=== PATIENT | female | born 1955 | race Caucasian/White ===

== ENCOUNTER 2017-05-04 12:48 | Emergency (ER) | payer OTHER ==
[~2017-05-04] VITALS: Ht 154.9 cm; Wt 63.3 kg
[~2017-05-04 12:48] MED LIST: CLON-481 PO; DUONI NEB; PRED20 PO; VENTAER INH
[2017-05-04 13:00] VITALS: BP 173/91; PULSE 112; RESP 20; TEMP 98.7
[2017-05-04] MEDS ORDERED: ALBU0.63 NEB (13:17)
[2017-05-04] MEDS ORDERED: RESP: ALBUTEROL 2.5 MG/IPRATROPIUM 0.5 MG NEB (SCH) NEB ONE (13:30)
[2017-05-04] MEDS ORDERED: methylPREDNISolone SOD SUCC 125 MG/2 ML VIAL IM ONE (13:30)
--- NOTE | 2017-05-04 13:32 | PD ---
HPI Chief Complaint: Cold / Flu Symptoms Time Seen by Provider: 13:23 Travel History International Travel<30 days: No Contact w/Intl Traveler<30days: No Traveled to known affect area: No History of Present Illness HPI 61-year-old female with history of asthma presents to the emergency room for evaluation of nonproductive cough for the past week. Patient states she had other cold and flu symptoms such as sore throat, ear pain, and nasal congestion one month ago but those symptoms went away 1 week ago. Patient called a tele- doc who prescribed her azithromycin, prednisone, and Levaquin which she finished. States she felt moderately better after taking the prednisone and Levaquin but a few days after stopping, the symptoms returned. States she has periods where she feels a lot of congestion in her chest she has difficulty bringing up, especially at night. She used to smoke but no longer smokes. No history of fever, chills, nausea, or vomiting. PFSH Past Medical History Anxiety: Yes Cancer: No Cardiovascular Problems: No Diminished Hearing: No Endocrine: No Genitourinary: No Hypertension: Yes Immune Disorder: No Musculoskeletal: No Neurologic: No Psychiatric: No Reproductive: No Respiratory: Yes (USES INHALER FOR RESP PROBLEMS) Tetanus Vaccination: > 5 Years Influenza Vaccination: No Menopausal: Yes Past Surgical History Other Surgery: Yes (vocal cord surgery) Social History Alcohol Use: No Tobacco Use: No (quit 2 years ago) Substance Use: No Allergies-Medications (Allergen,Severity, Reaction): Coded Allergies: penicillin G (Unverified Allergy, Unknown, A CHILD, 04/18/17) Reported Meds & Prescriptions Reported Meds & Active Scripts Active Prednisone 20 Mg Tab 40 Mg PO DAILY Take 40 mg (2 tablets) daily for 5 days Reported Albuterol Neb (Albuterol Sulfate) 0.63 Mg/3 Ml Neb 0.63 Mg NEB Q6HR NEB PRN Review of Systems Except as stated in HPI: all other systems reviewed are Neg Physical Exam Narrative GENERAL: Well-nourished, well-developed female in no acute distress. Afebrile. Ambulatory. SKIN: Focused skin assessment warm/dry. HEAD: Normocephalic. EYES: No scleral icterus. No injection or drainage. NECK: Supple, trachea midline. No JVD or lymphadenopathy. ENT: Mucosa pink and moist. No erythema or exudates. No uvular edema. No uvular , palatal, or tonsillar deviation. Airway patent. Nasal turbinates appear normal without nasal blood, purulent drainage or septal hematoma. EARS: Bilateral pinnae and external canals appear within normal limits. Bilateral tympanic membranes without erythema or perforation. Bilateral dullness that appears chronic. CARDIOVASCULAR: Regular rate and rhythm without murmurs, gallops, or rubs. RESPIRATORY: Breath sounds equal bilaterally. No accessory muscle use. No crackles, rales, or rhonchi. Scattered wheezes that clear with coughing. Data Data Last Documented VS Vital Signs Date Time Temp Pulse Resp B/P (MAP) Pulse Ox O2 Delivery O2 Flow Rate FiO2 05/04/17 14:27 05/04/17 14:04 94 20 99 05/04/17 13:24 Room Air 05/04/17 13:00 98.7 Orders Orders Chest, Pa & Lat (05/04/17 ) Albuterol-Ipratropium Neb (Duoneb Neb) (05/04/17 13:30) Methylprednisolone So Succ Inj (Solumedr (05/04/17 13:30) MDM Medical Decision Making Medical Screen Exam Complete: Yes Emergency Medical Condition: Yes Medical Record Reviewed: Yes Differential Diagnosis Asthma exacerbation, bronchitis, pneumonia, upper respiratory infection Narrative Course 61-year-old female with a history of asthma presents to the emergency room for evaluation of mild productive cough for the past week. It started off with upper respiratory symptoms 1 month ago but those symptoms have improved and the cough developed one week ago. It is only mildly, occasionally productive of clear/yellow sputum. No history of fevers. She has been on prednisone, azithromycin, and Levaquin in the past 3 weeks. Also been using her albuterol treatment every 1-2 hours at home. States she felt better after the prednisone but then started feeling worse again after being off of it for a few days. Patient is afebrile and well-appearing in the emergency room. Vital signs stable. Resting comfortably in bed. No increased work of breathing. Lungs sounds clear and equal bilaterally. Chest x-ray is negative for any pneumonia. This is likely viral bronchitis which explains why antibiotics are not improving her symptoms. After 3 DuoNeb since the shot of Solu-Medrol, patient' s pulse ox is 99% on room air and her pulse is 94 bpm. She is highly anxious. I spoke to my attending physician, Dr. Short, who agrees with assessment and plan. Patient was reassured and discharged with prescription for prednisone. Told to follow up with a primary care physician or return to the emergency room for worsening symptoms. She understands and agrees to plan. Diagnosis Primary Impression: Acute bronchitis Qualified Codes: J20.9 - Acute bronchitis, unspecified Referrals: Primary Care Physician Assistant In Nursing Additional Instructions: Rest and drink plenty of fluids. Take prednisone as directed, until gone. Use inhalers as directed, as needed for wheezing and shortness of breath. Do not use more than directed. Apply ice to the affected area for 20 minutes at a time, as needed for pain and swelling. Follow-up with a primary care physician. Return to the emergency room for worsening symptoms. Scripts Prednisone (Prednisone) 20 Mg Tab 40 MG PO DAILY, #10 TAB 0 Refills Take 40 mg (2 tablets) daily for 5 days Prov: Lesa Short MD 05/04/17 Disposition: 01 DISCHARGE HOME Condition: Stable Zuleyka Lugo May 04, 2017 13:32
--- NOTE | 2017-05-04 13:57 | RADRPT ---
EXAM DATE/TIME: 05/04/2017 13:28 [facility] COMPARISON: No previous studies available for comparison. INDICATIONS : Short of breath, wheezing MEDICAL HISTORY : Chronic obstructive pulmonary disease. SURGICAL HISTORY : None. ENCOUNTER: Initial ACUITY: 3 weeks PAIN SCORE: 0/10 LOCATION: Bilateral chest FINDINGS: PA and lateral views of the chest demonstrate the lungs to be symmetrically aerated without evidence of mass, infiltrate or effusion. The cardiomediastinal contours are unremarkable. Osseous structure s are intact. CONCLUSION: No acute disease. There is no evidence of pneumonia. Anthony Mcdowell MD on May 04, 2017 at 13:55 Board Certified Radiologist. This report was verified electronically.
[2017-05-04 14:04] VITALS: BP 144/91; PULSE 94; RESP 20; O2SAT 99
[2017-05-04] MEDS ORDERED: PRED20 PO (14:12)
== END 2017-05-04 14:41 | disposition home or self-care (01) ==
LOC: PHEFT 12:48
DX: J44.0 Chronic obstructive pulmonary disease with (acute) lower respiratory infection (principal); J20.9 Acute bronchitis, unspecified; I10 Essential (primary) hypertension; Z87.891 Personal history of nicotine dependence; Z88.0 Allergy status to penicillin
CPT/HCPCS: 71020; 94664; 96372; 99284; J2930